=== PATIENT | female | born 1950 | race Asian ===

== ENCOUNTER 2021-04-27 10:05 | Outpatient (CLI) | payer MEDICARE, SELFPAY ==
--- NOTE | 2021-04-27 10:17 | MM_ITS ---
WS: [id number] Bilateral screening digital mammogram, 04/27/2021 Clinical Data: SCREENING Comparison: None. Findings: The breast parenchymal pattern shows heterogeneous density. No spiculated masses or clustered calcif ications are seen. There are no secondary signs of carcinoma. MM/[id number] Impression: 1. Negative bilateral mammogram with no prior exam for review.. 2. Recommend annual screening mammograms. BIRADS: 1-Negative FOLLOW UP: 1 Year Follow-up The CAD tool or die drawing checker was used.
== END 2021-04-27 10:06 | disposition home or self-care (01) ==
LOC: RADSHAW 10:14
PROVIDERS: Family Provider Family Medicine; PCP Family Medicine; Visit Provider Family Medicine
DX: Z12.31 Encounter for screening mammogram for malignant neoplasm of breast (principal)
CPT/HCPCS: 77067

== ENCOUNTER 2022-11-13 11:10 | Outpatient (CLI) | payer MEDICARE, OTHER, SELFPAY | END 2022-11-13 11:11 | disposition home or self-care (01) | LOC: RT 11:10 | PROVIDERS: PCP Family Medicine; Visit Provider Family Medicine | DX: R07.89 Other chest pain (principal) | CPT/HCPCS: 94010; 94726; 94729 ==

== ENCOUNTER 2023-05-27 10:09 | Emergency (ER) | payer MEDICARE, OTHER, SELFPAY ==
[2023-05-27 10:31] VITALS: BP 175/89; PULSE 63; RESP 15; TEMP 36.5; O2SAT 98; BMI 21.2
--- NOTE | 2023-05-27 12:19 | ED_ITS ---
HPI - COVID General: Chief Complaint: COVID symptoms Stated Complaint: covid+, weakness Time Seen by Provider: 05/27/23 12:17 History of Present Illness: 72-year-old female presents to the emergency department at the backing of her . She states that she tested positive for COVID on May 22. was worried about her this morning because she took a nap around 8 or 9 in the morning. Patient explains that she got up at 3 AM to do all of her prayers. After several hours of doing her prayers, she wanted to take a nap. She says she also is jet laggged from travel. She does not think this is something she needs to be here for but her insisted she come get checked out. She reports she has no symptoms other than feeling fatigued. She does have high blood pressure so her doctor started her on Paxlovid on the third. She denies nausea, vomiting, diarrhea, shortness of breath, headaches, dizziness, inability to drink or hydrate, rashes, joint swelling or pain, confusion, trouble walking, or any other symptoms. She does note she has chronic hypertension and takes blood pressure for this. She also says sometimes she has postnasal drip which is also preceding her COVID symptoms. COVID Results: No Data to Display Review of Systems Narrative: Pertinent Positives: Fatigue Postnasal drip with occasional cough Chronic high blood pressure Pertinent Negatives: See HPI. Denies other symptoms. 12 Point ROS performed and otherwise negative unless stated here or HPI. Physical Exam Const: COMMON NORMALS: no limitations, alert and well nourished EXAM LIMITATIONS: no altered mental status HENMT: COMMON NORMALS: normocephalic, atraumatic and external ears normal HEAD & SCALP: normocephalic and atraumatic EXTERNAL EAR: Yes external ears normal MOUTH: no muffled voice Eye: COMMON NORMALS: EOMs intact bilaterally, conjunctivae normal and no scleral icterus CONJUNCTIVA: Yes conjunctivae normal Neck/C-Spine: COMMON NORMALS: no JVD GENERAL: Yes normal visual inspection and Yes trachea midline Resp: COMMON NORMALS: normal respiratory effort, No use of accessory muscles and clear to auscultation bilaterally AUSCULTATION: clear to auscultation bilaterally Cardio: COMMON NORMALS: no JVD, regular rate and regular rhythm RATE: regular rate RHYTHM: regular rhythm GI: COMMON NORMALS: Soft to palpation and non-tender PALPATION: Yes Soft to palpation and No Guarding due to palpation present (GI) Extremity: COMMON NORMALS: normal to inspection Neuro: COMMON NORMALS: moves all extremities, no focal motor deficits and no sensory deficits noted SENSORIUM/ORIENTATION: Yes alert SPEECH: speech normal Psych: COMMON NORMALS: mental status grossly normal, Normal thought process present, cooperative, normal affect and speech normal SPEECH: Yes normal speech THOUGHT PROCESS: Normal thought process present Skin: COMMON NORMALS: no rashes or lesions noted, turgor normal and no jau ndice GENERAL SKIN EXAM: no rashes or lesions noted and turgor normal Course Vital Signs: Vital signs: Vital Signs Temperature 97.7 F 05/27/23 10:31 Pulse Rate 63 05/27/23 10:31 Respiratory Rate 15 05/27/23 10:31 Blood Pressure 175/89 05/27/23 10:31 Pulse Oximetry 100 05/27/23 12:21 Oxygen Delivery Me thod Room Air 05/27/23 12:21 MDM - COVID Medical Decision Making This is a well-appearing 72-year-old female who has tested positive for COVID. She really is asymptomatic and is frustrated to be here. However, her wanted her checked out because she took a nap this morning. She is alert, ambulatory, and has a normal exam and normal vital signs other than hypertension. I do not find any reason to do any further work-up and was satisfied with her examination. Discharged with follow-up PCP as needed. 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
[2023-05-27 12:21] VITALS: O2SAT 100
[2023-05-27 13:01] VITALS: BP 175/89; PULSE 63; O2SAT 100
== END 2023-05-27 13:03 | disposition home or self-care (01) ==
PROVIDERS: Emergency Provider Emergency Medicine; PCP Family Medicine
DX: U07.1 COVID-19 (principal); I10 Essential (primary) hypertension
CPT/HCPCS: 99281

== ENCOUNTER 2024-07-15 07:48 | Outpatient (CLI) | payer MEDICARE, OTHER, SELFPAY | END 2024-07-15 07:49 | disposition home or self-care (01) | LOC: RT 07:49 | PROVIDERS: PCP Electrodiagnostic Medicine; Visit Provider Electrodiagnostic Medicine | DX: R05.3 Chronic cough (principal); R94.2 Abnormal results of pulmonary function studies | CPT/HCPCS: 94010; 94726; 94729 ==

== ENCOUNTER 2024-07-29 15:48 | Outpatient (CLI) | payer MEDICARE, OTHER, SELFPAY | END 2024-07-29 15:49 | disposition home or self-care (01) | LOC: SLEEP 15:50 | PROVIDERS: PCP Family Medicine; Visit Provider Electrodiagnostic Medicine | DX: G47.33 Obstructive sleep apnea (adult) (pediatric) (principal) | CPT/HCPCS: G0399 ==

== ENCOUNTER 2025-01-29 07:22 | Inpatient (IN) | payer MEDICARE, OTHER, SELFPAY ==
[2025-01-29] VITALS (10 sets, daily range): BP systolic 120–166; BP diastolic 58–95; PULSE 56–97; RESP 14–18; TEMP 36.4–36.6; O2SAT 96–99; BMI 21.2
--- NOTE | 2025-01-29 07:27 | ECG_ITS ---
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 Measurements Intervals [place] Rate: 58 P: 61 [place]: 210 QRS: 18 QRSD: 93 T: 37 QT: 405 QTc: 400 Interpretive Statements SINUS BRADYCARDIA WITH FIRST DEGREE AV BLOCK No previous ECG available for comparison Electronically Signed On 01-30-2025 13:09:22 CDT by Tacho Alonso M.D. [id number]
--- NOTE | 2025-01-29 07:35 | XR_ITS ---
WS: [id number] Exam: XR chest 1V portable [id number] Date/Time of Exam: 01/29/2025 7:50 AM Reason For Exam: Weakness Comparison 05/13/2024. Lungs are clear and fully inflated. Normal cardiomediastinal silhouette. No pleural effusions. Bony structures are intact. XR/XR chest 1V portable [id number] IMPRESSION: 1. No acute cardiopulmonary finding.
--- NOTE | 2025-01-29 07:35 | CT_ITS ---
WS: [id number] CT HEAD TECHNIQUE: Noncontrast CT of the head obtained from the skullbase to the vertex. CLINICAL INFORMATION: dizzy COMPARISON: None. DLP: 1011.[address] scans at [facility] use at least one of these dose optimization techniques: automated exposure control; mA and/or kV adjustment per patient size (includes targeted exams where dose is matched to clinical indication); or iterative reconstruction. FINDINGS: No evidence of intracranial hemorrhage or mass effect. Ventricular system and basal cisterns are patent. Mild small vessel changes with mild parenchymal volume loss. No extra-axial fluid collections. No evidence of mass or mass effect. Vascular calcification. Chronic opacification RIGHT mastoid air cells. Opacification RIGHT middle ear. LEFT mastoid air cells are well aerated. Paranasal sinuses are well aerated. CT/CT head wo con* [id number] IMPRESSION: 1. No evidence of intracranial hemorrhage or mass effect. 2. Chronic appearing opacification of the RIGHT mastoid air cells. 3. Soft tissue thickening of the RIGHT middle ear and epitympanum. This is lik alfred infectious or inflammatory but recommend interval follow-up to resolution t o exclude small cholesteatoma. 4. No acute intracranial findings.
--- NOTE | 2025-01-29 07:42 | ED_ITS ---
HPI - Dizziness 2 General: Chief Complaint: Dizziness Stated Complaint: dizzy Time Seen by Provider: 01/29/25 07:29 History of Present Illness: HPI Narrative: 74-year-old female who presents to the e mergency room with dizziness. She has extreme difficulty disc being the dizziness. He says it is not really being lightheaded. She says a little bit of off balance. Does not really describe it is standing either. Perhaps some mild nausea. She becomes frustrated with trying to explain what it feels like. It has been going on for over 2 days now. She says she feels like things are moving and movement worsens the symptoms. She has had no nausea she says. No vomiting or diarrhea. No history of stroke. No headache. No altered mental status. No focal motor deficits. She does have a history of hypertension. No reports of fever cough. Related Data Home Medications ?Medication ?Instructions ?Recorded ?Confirmed aspirin 81 mg tablet,delayed 81 mg PO DAILY 01/29/25 0 01/29/25 release (Sapphire Low Dose Aspirin) cholecalciferol (vitamin D3) 125 125 mcg PO DAILY 01/1901/29/25 mcg (5,000 unit) tablet (Vitamin D3) losartan 100 1 tab PO DAILY 01/29/2501/19 mg-hydrochlorothiazide 25 mg tablet omega 1-lgx-yum-fish oil 900 1 cap PO DAILY 01/29/25 0 01/29/25 mg-1,400 mg capsule,delayed release Allergies Allergy/AdvReac Type Severity Reaction Status Date / Time No Known Allergies Allergy Verified 01/29/25 07:29 Review of Systems 2 Narrative: Constitutional symptoms: Negative except as documented in HPI. Skin symptoms: Negative except as documented in HPI. Eye symptoms: Negative except as documented in HPI. ENMT symptoms: Negative except as documented in HPI. Respiratory symptoms: Negative except as documented in HPI. Cardiovascular symptoms: Negative except as documented in HPI. Gastrointestinal symptoms: Negative except as documented in HPI. Genitourinary symptoms: Negative except as documented in HPI. Musculoskeletal symptoms: Negative except as documented in HPI. Neurologic symptoms: Negative except as documented in HPI. Psychiatric symptoms: Negative except as documented in HPI. Endocrine symptoms: Negative except as documented in HPI. Physical Exam 2 Narrative: EXAM NARRATIVE: General: Alert, no acute distress. Skin: Warm, dry. Head: Normocephalic, atraumatic. Neck: Supple, trachea midline. Eye: Extraocular movements are intact. Ears, nose, mouth and throat: mucosa moist. Cardiovascular: Regular, Normal peripheral perfusion. Respiratory: Lungs are clear to auscultation, respirations are non-labored, breath sounds are equal, Symmetrical chest wall expansion. Gastrointestinal: Soft, Nontender, Non distended Musculoskeletal: Normal ROM, no deformity. Neurological: Alert and oriented, No focal neurological deficit observed. Psychiatric: Cooperative, appropriate mood & affect. Course 2 Vital Signs: Vital signs: Vital Signs Temperature 97.5 F L 01/29/25 07:26 Pulse Rate 56 L 01/29/25 09:56 Respiratory Rate 17 01/29/25 08:47 Blood Pressure 122/58 01/29/25 09:56 Pulse Oximetry 97 01/29/25 09:56 Oxygen Delivery Me thod Room Air 01/29/25 07:26 MDM - Dizziness Medical Decision Making Medical decision making: Differential diagnosis including but not limited to and based on the above HPI, review of systems and physical exam: for patient with complaint of dizziness: stroke, hypotension, hypertension, infection, vertigo, orthostasis Orders placed to evaluate differential diagnosis based on the above differential, HPI and physical exam Patient initially was very vague about her symptoms. Was difficult to say if this was a lightheadedness or more of a vertigo type issue. However later when we got her up she seemed to have fairly significant gait abnormality. Code stroke was not called secondary to the fact that her symptoms have been present for over 48 hours and her stroke scale was 0. NIH Stroke Scale/Score (NIHSS) from [email or web address] on 01/29/2025 All calculations should be rechecked by clinician prior to use RESULT SUMMARY: 0 points NIH Stroke Scale INPUTS: 1A: Level of consciousness ?> 0 = Alert; keenly responsive 1B: Ask month and age ?> 0 = Both questions right 1C: 'Blink eyes' & 'squeeze hands' ?> 0 = Performs both tasks 2: Horizontal extraocular movements ?> 0 = Normal 3: Visual bo ?> 0 = No visual loss 4: Facial palsy ?> 0 = Normal symmetry 5A: Left arm motor drift ?> 0 = No drift for 10 seconds 5B: Right arm motor drift ?> 0 = No drift for 10 seconds 6A: Left leg motor drift ?> 0 = No drift for 5 seconds 6B: Right leg motor drift ?> 0 = No drift for 5 seconds 7: Limb Ataxia ?> 0 = No ataxia 8: Sensation ?> 0 = Normal; no sensory loss 9: Language/aphasia ?> 0 = Normal; no aphasia 10: Dysarthria ?> 0 = Normal 11: Extinction/inattention ?> 0 = No abnormality EKG: Time 727. Rate 58. Sinus bradycardia. No ST-T changes, no ectopy, first degree AV Block, EP Interpretation. This was reviewed and interpreted by myself the ER physician at 7:30 AM. Chest x-ray: No acute process. No infiltrate. No pneumothorax. This was reviewed and interpreted by myself the emergency room physician. I also reviewed the radiology report. CT head: No acute intracranial process. no intracranial hemorrhage, no evidence of infarct. no evidence of acute fracture.This was reviewed and interpreted by myself the ER physician. Lab Review: Laboratory results were reviewed and interpreted by myself the emergency room physician. No leukocytosis. No anemia. No renal failure. Patient does have a fairly significant urinary tract infection with 11-20 whites and 4+ bacteria. I reviewed the patient's medical record. Reexamination: Patient continues to complain of fairly severe dizziness. Again she cannot describe it well but she has significant instability of her gait. With her continued symptoms and concern for possible stroke at this point we are going to admit for further workup. I ordered MRI that is not complete at the time of admission. No increased work of breathing. No altered mental status. Still no focal motor deficits. Consultation: I spoke with Dr. Christensen who is on-call for the hospitalist service who agrees to admission Assessment and plan: Gait instability Dizziness Accelerated hypertension ?Symptoms were not relieved with meclizine nor with Ativan. However blood pressure has improved some with the Ativan. -I discussed the patient with the hospitalist on-call who is admitting the patient. - Discussed findings and plan with patient. Answered any questions. - All laboratory values were reviewed and interpreted personally by myself, the ER physician - All imaging was reviewed and interpreted personally by myself, the ER physician. - Evaluation and treatment of this problem were appropriate in the emergency setting Lab Data 01/29/25 07:32 01/29/25 07:32 Radiology Impressions Chest X-Ray 01/29/25 07:35 IMPRESSION: 1. No acute cardiopulmonary finding. Head CT 01/29/25 07:35 IMPRESSION: 1. No evidence of intracranial hemorrhage or mass effect. 2. Chronic appearing opacification of the RIGHT mastoid air cells. 3. Soft tissue thickening of the RIGHT middle ear and epitympanum. This is likely infectious or inflammatory but recommend interval follow-up to resolution to exclude small cholesteatoma. 4. No acute intracranial findings. Laboratory Results WBC 7.53 10^3/uL (3.29-11.43) 01/29/25 07:32 RBC 4.29 10^6/uL (3.85-5.65) 01/29/25 07:32 Hgb 13.00 g/dL (11.27-16.99) 01/29/25 07:32 Hct 38.5 % (36-47) 01/29/25 07:32 MCV 89.7 fl (85-98) 01/29/25 07:32 MCH 30.3 pg (27-33) 01/29/25 07:32 MCHC 33.8 g/dL (30-55) 01/29/25 07:32 RDW 12.3 % (12.1-15.1) 01/29/25 07:32 Plt Count 244 10^3/cmm (157-399) 01/29/25 07:32 MPV 7.9 fL (7.4-10.4) 01/29/25 07:32 Neut % (Auto) 76.1 % 01/29/25 07:32 Lymph % (Auto) 15.8 % 01/29/25 07:32 [place] % (Auto) 4.4 % 01/29/25 07:32 Eos % (Auto) 2.9 % 01/29/25 07:32 Baso % (Auto) 0.5 % 01/29/25 07:32 Neut # (Auto) 5.73 10^3/uL (1.8-7.7) 01/29/25 07:32 Lymph # (Auto) 1.2 10^3/uL (0.8-4.8) 01/29/25 07:32 [place] # (Auto) 0.3 10^3/uL (0.2-0.9) 01/29/25 07:32 Eos # (Auto) 0.2 10^3/uL (0.0-0.8) 01/29/25 07:32 Baso # (Auto) 0.0 10^3/uL (0.0-0.1) 01/29/25 07:32 Nucleated RBC % (auto) 0 % 01/29/25 07:32 Nucleated RBCs # 0.0 /100WBC 01/29/25 07:32 Sodium 134 mmol/L (136-145) L 01/29/25 07:32 Potassium 3.6 mmol/L (3.5-5.1) 01/29/25 07:32 Chloride 98 mmol/L (98-107) 01/29/25 07:32 Carbon Dioxide 24 mmol/L (22-29) 01/29/25 07:32 Anion Gap 15.6 (5-19) 01/29/25 07:32 BUN 10 mg/dL (8-23) 01/29/25 07:32 Creatinine 0.7 mg/dL (0.5-0.9) 01/29/25 07:32 GFR Calculation Not Reportable 01/29/25 07:32 Glucose 114 mg/dL (65-115) 01/29/25 07:32 POC Glucose 111 mg/dL (70-110) H 01/29/25 07:40 Calculated Osmolality 278 mOsm/kg (285-295) L 01/29/25 07:32 Calcium 9.4 mg/dL (8.5-10.5) 01/29/25 07:32 Total Bilirubin 1.2 mg/dL (0.15-1.2) 01/29/25 07:32 AST 20 U/L (0-32) 01/29/25 07:32 ALT 7 U/L (0-33) 01/29/25 07:32 Alkaline Phosphatase 89 U/L (35-105) 01/29/25 07:32 Troponin T Baseline < 6 ng/L (0-10) 01/29/25 07:32 Troponin T 120 Minute 6.56 ng/L (0-10) 01/29/25 10:02 Delta Troponin T 0.44694 ABS# (0-10) 01/29/25 10:02 Total Protein 7.4 g/dL (6.6-8.7) 01/29/25 07:32 Albumin 4.4 g/dL (3.5-5.2) 01/29/25 07:32 Globulin 3.0 g/dL (1.3-4.6) 01/29/25 07:32 Urine Color Yellow (Yellow) 01/29/25 07:45 Urine Appearance Clear (CLEAR) 01/29/25 07:45 Urine pH 8 (5-7) A 01/29/25 07:45 Ur Specific [place] 1.010 (1.005-1.030) 01/29/25 07:45 Urine Protein Neg (Negative) 01/29/25 07:45 Urine Glucose (UA) Norm (Normal) 01/29/25 07:45 Urine Ketones Negative (Negative) 01/29/25 07:45 Urine Blood Neg (Negative) 01/29/25 07:45 Urine Nitrate Negative (Negative) 01/29/25 07:45 Urine Bilirubin Neg (Negative) 01/29/25 07:45 Urine Urobilinogen Neg mg/dL (Negative) 01/29/25 07:45 Ur Leukocyte Esterase Trace (Negative) H 01/29/25 07:45 Urine RBC 0-2 /hpf (0-2) 01/29/25 07:45 Urine WBC 11-20 /hpf (0-5) H 01/29/25 07:45 Ur Squamous Epith Cells 0-5 /hpf (0-5) 01/29/25 07:45 Amorphous Sediment Not Reportable 01/29/25 07:45 Urine Bacteria 4+ /hpf (NONE) H 01/29/25 07:45 Hyaline Casts 0-4 /lpf H 01/29/25 07:45 All radiology interpretation(s) finalized by discharge Discharge Plan Discharge Patient Disposition: Admitted As Inpatient Clinical Impression: Gait instability, Dizziness, Accelerated hypertension Condition: Stable 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
--- NOTE | 2025-01-29 07:42 | PC.NURSE ---
glucose via FS: 111 @[id number]
[2025-01-29 07:45] LABS: Glucose Point of Care 111 mg/dL (70-110)
[2025-01-29 07:46] LABS: Basophils % 0.5 %; Eosinophils # 0.2 10^3/uL (0.0-0.8); Eosinophils % 2.9 %; Hematocrit 38.5 % (36-47); Lymphocytes # 1.2 10^3/uL (0.8-4.8); Lymphocytes % 15.8 %; Mean Corpuscular HGB Conc 33.8 g/dL (30-55); Mean Corpuscular Hemoglobin 30.3 pg (27-33); Mean Corpuscular Volume 89.7 fl (85-98); Mean Platelet Volume 7.9 fL (7.4-10.4); Monocytes # 0.3 10^3/uL (0.2-0.9); Monocytes % 4.4 %; Neutrophils # 5.73 10^3/uL (1.8-7.7); Neutrophils % 76.1 %; Nucleated Red Blood Cells % 0 %; Platelet Count 244 10^3/cmm (157-399); Red Blood Count 4.29 10^6/uL (3.85-5.65); Red Cell Distribution Width 12.3 % (12.1-15.1); White Blood Count 7.53 10^3/uL (3.29-11.43)
[2025-01-29 07:52] LABS: Bacteria Urine 4+ /hpf; Hyaline Casts Urine 0-4 /lpf; RBC Urine 0-2 /hpf (0-2); Squamous Epithelial Cell Urine 0-5 /hpf (0-5)
[2025-01-29 07:55] LABS: Bilirubin Urine Neg (Negative); Blood Urine Neg (Negative); Glucose Urine UA Norm (Normal); Ketones Urine Negative (Negative); Leukocyte Esterase Urine Trace (Negative); Nitrate Urine Negative (Negative); Protein Urine Neg (Negative); Urine Appearance Clear (CLEAR); Urine Color Yellow (Yellow); Urobilinogen Urine Neg (Negative); pH Urine 8 (5-7)
[2025-01-29 07:56] LABS: Add Urine Culture? Yes
[2025-01-29] MEDS: meclizine 25 mg tablet 50 MG PO (07:56)
[2025-01-29 08:07] LABS: Troponin(5th) Baseline < 6 ng/L (0-10)
[2025-01-29 08:10] LABS: Alanine Aminotransferase 7 U/L (0-33); Albumin Level 4.4 g/dL (3.5-5.2); Alkaline Phosphatase 89 U/L (35-105); Anion Gap 15.6 (5-19); Aspartate Amino Transferase 20 U/L (0-32); Blood Urea Nitrogen 10 mg/dL (8-23); Calcium 9.4 mg/dL (8.5-10.5); Carbon Dioxide 24 mmol/L (22-29); Chloride 98 mmol/L (98-107); Creatinine Clr Calc Pharmacy 44.9811; Glucose 114 mg/dL (65-115); Osmolality Calculated 278 mOsm/kg (285-295); Potassium 3.6 mmol/L (3.5-5.1); Sodium 134 mmol/L (136-145); Total Bilirubin 1.2 mg/dL (0.15-1.2); Total Protein 7.4 g/dL (6.6-8.7)
--- NOTE | 2025-01-29 08:43 | PC.NURSE ---
this nurse completed ambulation trial approx 45min post Meclizine admin; pt presented with side stepping, off balance. pt denies improvement. pt states supine helps relieve dizziness. Dr. Courtney notified
[2025-01-29] MEDS: LORazepam 2 mg/mL INJ 1 mL 1 MG IVP (08:55)
[2025-01-29] MEDS: dexamethasone 10 mg/mL INJ IVP (08:55)
--- NOTE | 2025-01-29 09:35 | ECG_ITS ---
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 Measurements Intervals [place] Rate: 59 P: 59 [place]: 187 QRS: 20 QRSD: 90 T: 45 QT: 401 QTc: 399 Interpretive Statements SINUS BRADYCARDIA Compared to ECG 01/29/2025 07:27:36 First degree AV block no longer present Electronically Signed On 01-30-2025 13:21:36 CDT by Tacho Alonso M.D. [email or web address]
[2025-01-29 10:33] LABS: Troponin 5 2HR 6.56 ng/L (0-10); Troponin 5 2HR Delta 0.56001 ABS# (0-10)
--- NOTE | 2025-01-29 10:59 | MR_ITS ---
WS: [id number] MRI BRAIN WITHOUT CONTRAST HISTORY: gait abnormality COMPARISON: CT head 01/29/2025 TECHNIQUE: Diffusion imaging, multiplanar T1, T2 and FLAIR imaging obtained. No evidence for acute infarct or hemorrhage. [place]-white matter differentiation is normal. Mild atrophy in the cerebrum and cerebellum. Mild small vessel disease. Ventricles and extra-axial spaces are normal. No inferior displacement of cerebellar tonsils. The sella turcica and pituitary gland are unremarkable. Dural venous sinuses and [place] demonstrate no abnormality on this unenhanced studies. Paranasal sinuses: Clear. Mastoid air cells: Minimal fluid in the RIGHT mastoid air cells towards the petrous ridge. Calvarium and scalp: Intact. MR/MR head wo con* [id number] IMPRESSION: 1. Normal diffusion imaging. No acute infarct. 2. Mild atrophy and small vessel disease. No large prior infarcts. 3. Mild RIGHT mastoid effusion.
--- NOTE | 2025-01-29 10:59 | PC.NURSE ---
attempted second ambulation trail, pt appears more unsteady, states dizziness remains the same. pt laying supine d/t relieving dizziness
--- NOTE | 2025-01-29 12:19 | PC.NURSE ---
attempted to call report to [facility], per Ericka unable to take report d/t not being able to give nurse assignment yet. states will call back in 10-20min.
[2025-01-29 15:13] LABS: Troponin 5 6HR Delta 0.00001 ng/L (0-12)
--- NOTE | 2025-01-29 17:12 | P.HP_ITS ---
Providers/Chief Complaint 2 Admitting Physician: Hector Christensen Primary Care Provider: Yvonne Olea MD Chief Complaint: dizzy History of Present Illness This is a female patient with a history of high blood pressure presenting with a two?day history of dizziness and instability that is most prominent on standing up or turning her head. The patient denies nausea, vomiting, fever, chills, diarrhea, chest pain, or shortness of breath. She reports intermittent ringing in her ears but no ear pain, discharge, or significant hearing loss. Recent imaging including a CT scan and an MRI were unremarkable for stroke. A possible benign paroxysmal positional vertigo (BPPV) is being considered. Additionally, a potential urinary tract infection was briefly mentioned but the patient denies any dysuria or hematuria. The patient leads an active lifestyle, working in a large garden, and reports no recent changes in her medications. Review of Systems 2 Const: Denies: fever(s), chills, body aches or malaise ENMT: Denies: throat pain Card: Denies: chest pain, edema, pre-syncope or dyspnea on exertion Resp: Denies: dyspnea, productive cough, change in phlegm color or hemoptysis GI: Denies: abdominal pain, nausea, vomiting, diarrhea, constipation, hematochezia or melena : Denies: flank pain, urinary frequency or hematuria Musc: Denies: back pain, joint swelling or joint redness Skin/Breast: Denies: rash or new lesions Neuro: Reports: difficulty walking and dizziness; Denies: headache(s) or confusion Medications/Allergies Home Medications ?Medication ?Instructions ?Recorded ?Confirmed ?Last Taken ?Type aspirin 81 mg tablet,delayed 81 mg PO DAILY 01/29/25 0 01/29/25 01/29/25 History release (Sapphire Low Dose Aspirin) cholecalciferol (vitamin D3) 125 125 mcg PO DAILY 01/1901/29/25 01/28/25 History mcg (5,000 unit) tablet (Vitamin D3) losartan 100 1 tab PO DAILY 01/29/2501/1901/28/25 History mg-hydrochlorothiazide 25 mg tablet omega 1-tim-xpd-fish oil 900 1 cap PO DAILY 01/29/25 0 01/29/25 01/28/25 History mg-1,400 mg capsule,delayed release Allergies Allergy/AdvReac Type Severity Reaction Status Date / Time No Known Allergies Allergy Verified 01/29/25 07:29 PFSH Acute 2 PFSH: Medical History (Updated 01/29/25 @ 20:14 by Hector Christensen MD) HTN (hypertension) Vitals/I&O/Wt Last Vital Signs Temp 97.8 F 01/29/25 16:04 Pulse 64 01/29/25 16:04 Resp 18 01/29/25 16:04 BP 152/77 01/29/25 16:04 Pulse Ox 98 01/29/25 16:04 O2 Del Method Room Air 01/29/25 16:04 Weight last 48 hrs Weight 46.266 kg Weight 47.627 kg Physical Exam 2 Narrative: at bedside Const: COMMON NORMALS: patient oriented x3 and alert GENERAL APPEARANCE: c ooperative ORIENTATION/CONSCIOUSNESS: Yes awake HENMT: COMMON NORMALS: oropharynx normal Neck/C-Spine: COMMON NORMALS: no JVD Resp: COMMON NORMALS: normal respiratory effort and clear to auscultation bilaterally AUSCULTATION: clear to auscultation bilaterally Cardio: COMMON NORMALS: no JVD, regular rhythm, S1 normal heart sound present, S2 normal heart sound present and No murmurs present (Cardio) RHYTHM: regular rhythm HEART SOUNDS: S1 normal heart sound present and S2 normal heart sound present GI: COMMON NORMALS: Normal to inspection, nondistended, normoactive bowel sounds present, Soft to palpation and non-tender PALPATION: Yes Soft to palpation Extremity: COMMON NORMALS: no joint enlargement and no pedal edema Neuro: COMMON NORMALS: patient oriented x3 and moves all extremities S ENSORIUM/ORIENTATION: Yes alert OTHER: NIHSS 0 She is awake and alert, following directions, no difficulty tracking resultantly, no nystagmus, visual bo full to conversation. FNF normal. Cyhc-ac-nxni normal. No slurred speech, no aphasia, sensation symmetrical, no upper or lower extremity drift. No nystagmus on either side of the gaze. No skew deviation. Proprioception intact in bilateral toes. [place]-Hallpike negative. On ambulation holding onto the wall with mild swaying [id number]. Skin: COMMON NORMALS: no rashes or lesions noted GENERAL SKIN EXAM: no rashes or lesions noted Data 01/29/25 07:32 01/29/25 07:32 A&P Assessment and plan (1) Gait instability: Patient presents with episodic dizziness and imbalance triggered by positional changes. Imaging has ruled out a stroke and BPPV is being considered as a potential cause, however, [place]-Hallpike performed, negative. Less likely BPPV, but will obtain PT assessment to see if can repeat. Orthostatics obtained, reviewed, not orthostatic. Discussed with her and her suspicion of vestibular neuronitis versus labyrinthitis. She does reports having had some hearing loss in the right ear. In the past has had intermittent tinnitus. Discussed differential with possible M?ni?re's disease. Will benefit from follow-up with ENT after discharge. Discussed consideration of treatment with corticosteroid for possible vestibular neuronitis. Discussed risk and potential benefit of corticosteroid, including among others hypertension, hyperglycemia, gastritis. MRI without CVA or obvious demyelination, although noncontrast study. Discussed may benefit from follow-up with neurology after discharge. Treat UTI. Dizziness may be secondary to her medications, both losartan and HCTZ can cause this symptom. Will hold medication, reassess, consider discontinuation at discharge. Reviewed vitals, CBC, CMP, troponin, chest x-ray, head CT, head MRI, ER provider note, discussed with ER provider. PT assessment requested. (2) Dizziness: As above. Plan Appears to have had prior otitis externa in bilateral ears, ringing of thick scar tissue noted in front of the tympanic membrane with central opening through which the membrane can be barely visualized. This is her better ear. Right ear small amount of prior scarring. She does state that she has been using Q-tips, advised her to avoid Q-tips. Follow-up with ENT for assessment particular left ear scar tissue and EAM narrowing, as well as right ear hearing loss. HTN: Monitor blood pressures. Currently at goal. PDMP PDMP Reviewed: Not Reviewed Attestations 2 Medical Necessity Statement*: Place in observation for assessment management of gait instability. and High MDM includes amount and/or complexity of data reviewed/ordered [ previous or external records, resulted lab(s)/test(s), ordered lab(s)/test(s) and other healthcare professional discussion] and described risk of complication, morbidity or mortality of management as documented Diagnoses Gait instability R26.81 Dizziness R42
[2025-01-29] MEDS: cefTRIAXone 1,000 mg SDV 1000 MG IVP (17:44)
[2025-01-29] MEDS: predniSONE 20 mg Tablet 50 MG PO (18:08)
[2025-01-30] VITALS: BP 114/67; PULSE 72; RESP 16; TEMP 36.6; O2SAT 95
[2025-01-30 03:59] LABS: Basophils % 0.1 %; Hematocrit 38.7 % (36-47); Lymphocytes # 0.8 10^3/uL (0.8-4.8); Mean Corpuscular HGB Conc 33.3 g/dL (30-55); Mean Corpuscular Hemoglobin 29.9 pg (27-33); Mean Corpuscular Volume 89.6 fl (85-98); Mean Platelet Volume 8.2 fL (7.4-10.4); Monocytes # 0.1 10^3/uL (0.2-0.9); Monocytes % 0.8 %; Neutrophils # 12.04 10^3/uL (1.8-7.7); Neutrophils % 92.7 %; Nucleated Red Blood Cells % 0 %; Platelet Count 253 10^3/cmm (157-399); Red Blood Count 4.32 10^6/uL (3.85-5.65); Red Cell Distribution Width 12.1 % (12.1-15.1); White Blood Count 12.98 10^3/uL (3.29-11.43)
[2025-01-30 04:00] VITALS: BP 131/74; PULSE 64; RESP 15; TEMP 36.4; O2SAT 96
[2025-01-30 04:12] LABS: Blood Urea Nitrogen 17 mg/dL (8-23); Calcium 9.4 mg/dL (8.5-10.5); Carbon Dioxide 20 mmol/L (22-29); Chloride 99 mmol/L (98-107); Creatinine Clr Calc Pharmacy 43.6957; Glucose 164 mg/dL (65-115); Osmolality Calculated 277 mOsm/kg (285-295); Sodium 131 mmol/L (136-145)
[2025-01-30 04:15] LABS: Anion Gap 15.6 (5-19); Potassium 3.6 mmol/L (3.5-5.1)
[2025-01-30 07:26] VITALS: BP 125/71; PULSE 66; RESP 16; TEMP 36.4; O2SAT 95
--- NOTE | 2025-01-30 09:32 | P.DS_ITS ---
Discharge Providers Date of Admission: 01/29/25 12:17 Date of Discharge: January 30, 2025 Attending Provider at Admission: Hector Christensen Attending Provider at Discharge: Brennen Castellanos MD Primary Care Provider: Yvonne Olea MD Diagnoses at Discharge Discharge Diagnosis (1) Gait instability: Status: Acute (2) Dizziness: Status: Acute Reason for Visit Reason for Visit: dizzy Hospital Course Hospital Course Jaycee Zamudio is a 74-year-old female who presented with severe vertigo. Posterior stroke was considered but ruled out with MRI. BPPV considered but [place]-Hallpike negative. Orthostatic vitals unremarkable. Presentation highly suspicious for vestibular neuritis. Patient treated with steroids and meclizine. She follows with ENT locally for which recommend follow-up within 7 days. Workup also revealed acute complicated urinary tract infection treated with ceftriaxone and transition to cefdinir. Her symptomatology improved. Patient discharged home in stable condition. She will follow-up with her primary within 1 week. Physical Exam Narrative: General: Patient is awake and alert. Head: Normocephalic. Atraumatic. EOM intact. Neck: No JVD. Cardiovascular: RRR. No gallops. No murmurs. No peripheral edema. Lungs: Clear to auscultation, no use of accessory muscles, no crackles or wheezes. Skin: No jaundice. No rashes. Abdomen: Normal bowel sounds, abdomen soft and nontender. Genito Urinary: Genital exam not performed since complaints not related. Rectal: Rectal exam not performed since no symptoms indicated blood loss. Extremities: No cyanosis or clubbing. Musculoskeletal: No swollen or erythematous joints. Neurological: Moves all 4 extremities. No myoclonus. Discharge Data Studies Completed and Pending Completed Studies During Hospitalization Category Date Time Status CT head wo con* [id number] Stat Cat Scan 01/29/25 07:35 Completed XR chest 1V portable [id number] Stat Exams 01/29/25 07:35 Completed MR head wo con* [id number] Stat MRI 01/29/25 10:59 Completed Pending at discharge Category Date Time Status Urine Culture Stat Lab 01/29/25 07:45 Results Radiology Impressions Chest X-Ray 01/29/25 07:35 IMPRESSION: 1. No acute cardiopulmonary finding. Head CT 01/29/25 07:35 IMPRESSION: 1. No evidence of intracranial hemorrhage or mass effect. 2. Chronic appearing opacification of the RIGHT mastoid air cells. 3. Soft tissue thickening of the RIGHT middle ear and epitympanum. This is likely infectious or inflammatory but recommend interval follow-up to resolution to exclude small cholesteatoma. 4. No acute intracranial findings. Head MRI 01/29/25 10:59 IMPRESSION: 1. Normal diffusion imaging. No acute infarct. 2. Mild atrophy and small vessel disease. No large prior infarcts. 3. Mild RIGHT mastoid effusion. Laboratory Results WBC 12.98 10^3/uL (3.29-11.43) H 01/30/25 03:40 RBC 4.32 10^6/uL (3.85-5.65) 01/30/25 03:40 Hgb 12.90 g/dL (11.27-16.99) 01/30/25 03:40 Hct 38.7 % (36-47) 01/30/25 03:40 MCV 89.6 fl (85-98) 01/30/25 03:40 MCH 29.9 pg (27-33) 01/30/25 03:40 MCHC 33.3 g/dL (30-55) 01/30/25 03:40 RDW 12.1 % (12.1-15.1) 01/30/25 03:40 Plt Count 253 10^3/cmm (157-399) 01/30/25 03:40 MPV 8.2 fL (7.4-10.4) 01/30/25 03:40 Neut % (Auto) 92.7 % 01/30/25 03:40 Lymph % (Auto) 6.0 % 01/30/25 03:40 [place] % (Auto) 0.8 % 01/30/25 03:40 Eos % (Auto) 0.0 % 01/30/25 03:40 Baso % (Auto) 0.1 % 01/30/25 03:40 Neut # (Auto) 12.04 10^3/uL (1.8-7.7) H 01/30/25 03:40 Lymph # (Auto) 0.8 10^3/uL (0.8-4.8) 01/30/25 03:40 [place] # (Auto) 0.1 10^3/uL (0.2-0.9) L 01/30/25 03:40 Eos # (Auto) 0.0 10^3/uL (0.0-0.8) 01/30/25 03:40 Baso # (Auto) 0.0 10^3/uL (0.0-0.1) 01/30/25 03:40 Nucleated RBC % (auto) 0 % 01/30/25 03:40 Nucleated RBCs # 0.0 /100WBC 01/30/25 03:40 Sodium 131 mmol/L (136-145) L 01/30/25 03:40 Potassium 3.6 mmol/L (3.5-5.1) 01/30/25 03:40 Chloride 99 mmol/L (98-107) 01/30/25 03:40 Carbon Dioxide 20 mmol/L (22-29) L 01/30/25 03:40 Anion Gap 15.6 (5-19) 01/30/25 03:40 BUN 17 mg/dL (8-23) 01/30/25 03:40 Creatinine 0.8 mg/dL (0.5-0.9) 01/30/25 03:40 GFR Calculation Not Reportable 01/30/25 03:40 Glucose 164 mg/dL (65-115) H 01/30/25 03:40 POC Glucose 111 mg/dL (70-110) H 01/29/25 07:40 Calculated Osmolality 277 mOsm/kg (285-295) L 01/30/25 03:40 Calcium 9.4 mg/dL (8.5-10.5) 01/30/25 03:40 Total Bilirubin 1.2 mg/dL (0.15-1.2) 01/29/25 07:32 AST 20 U/L (0-32) 01/29/25 07:32 ALT 7 U/L (0-33) 01/29/25 07:32 Alkaline Phosphatase 89 U/L (35-105) 01/29/25 07:32 Troponin T Baseline < 6 ng/L (0-10) 01/29/25 07:32 Troponin T 120 Minute 6.56 ng/L (0-10) 01/29/25 10:02 Delta Troponin T 0.59441 ABS# (0-10) 01/29/25 10:02 Troponin T Hi Sens 6Hr 6.00 ng/L (0-10) 01/29/25 13:36 Troponin T Hi Sens 6Hr Delta 0.38084 ng/L (0-12) 01/29/25 13:36 Total Protein 7.4 g/dL (6.6-8.7) 01/29/25 07:32 Albumin 4.4 g/dL (3.5-5.2) 01/29/25 07:32 Globulin 3.0 g/dL (1.3-4.6) 01/29/25 07:32 Urine Color Yellow (Yellow) 01/29/25 07:45 Urine Appearance Clear (CLEAR) 01/29/25 07:45 Urine pH 8 (5-7) A 01/29/25 07:45 Ur Specific [place] 1.010 (1.005-1.030) 01/29/25 07:45 Urine Protein Neg (Negative) 01/29/25 07:45 Urine Glucose (UA) Norm (Normal) 01/29/25 07:45 Urine Ketones Negative (Negative) 01/29/25 07:45 Urine Blood Neg (Negative) 01/29/25 07:45 Urine Nitrate Negative (Negative) 01/29/25 07:45 Urine Bilirubin Neg (Negative) 01/29/25 07:45 Urine Urobilinogen Neg mg/dL (Negative) 01/29/25 07:45 Ur Leukocyte Esterase Trace (Negative) H 01/29/25 07:45 Urine RBC 0-2 /hpf (0-2) 01/29/25 07:45 Urine WBC 11-20 /hpf (0-5) H 01/29/25 07:45 Ur Squamous Epith Cells 0-5 /hpf (0-5) 01/29/25 07:45 Amorphous Sediment Not Reportable 01/29/25 07:45 Urine Bacteria 4+ /hpf (NONE) H 01/29/25 07:45 Hyaline Casts 0-4 /lpf H 01/29/25 07:45 Vitals Last Vital Signs Temp 97.5 F L 01/30/25 07:26 Pulse 66 01/30/25 07:26 Resp 16 01/30/25 07:26 BP 125/71 01/30/25 07:26 Pulse Ox 95 01/30/25 07:26 O2 Del Method Room Air 01/30/25 07:26 Discharge Plan Discharge Patient Disposition: Home Condition: Stable Prescriptions: New prednisone 20 mg Tablet 40 mg PO DAILY 5 Days Qty: 20 0RF meclizine 25 mg Tablet 25 mg PO TID PRN (Reason: Dizziness) 7 Days Qty: 21 0RF cefdinir 300 mg capsule 300 mg PO BID 7 Days Qty: 14 0RF fluticasone propionate [Flonase Allergy Relief] 50 mcg/actuation spray,suspension 2 spray intranasal DAILY Qty: 16 0RF Rx Instructions: administer into each nostril Continued aspirin [Sapphire Low Dose Aspirin] 81 mg Tablet,Delayed Release (Dr/Ec) 81 mg PO DAILY losartan-hydrochlorothiazide 100-25 mg tablet 1 tab PO DAILY omega 3-fwt-esa-fish oil 900-1,400 mg Capsule,Delayed Release(Dr/Ec) 1 cap PO DAILY cholecalciferol (vitamin D3) [Vitamin D3] 125 mcg (5,000 unit) Tablet 125 mcg PO DAILY Discharge Orders: Discharge Order (Routine); Ordered 01/30/25 Ordered By: Brennen Castellanos Referrals: Yvonne Olea MD [Primary Care Provider] - (We have notified your physician's clinic of the need for a follow-up appointment to be scheduled. If you have not heard from them within the next 2 business days, please call them directly. ) Hemanth García MD [Physician] - 4-7 days (Vertigo follow up We have notified your physician's clinic of the need for a follow-up appointment to be scheduled. If you have not heard from them within the next 2 business days, please call them directly. ) Discharge Diet: Advance as tolerated and Usual diet Discharge Activity: Resume usual activity and Increase activity as tolerated Patient Instructions: Prednisone (By mouth), Meclizine (By mouth), Cefdinir (By mouth), Fluticasone (Into the nose), Vertigo (GEN), Opioid Safety Activity Restrictions/Additional Instructions: 1. Take medications as prescribed. 2. Follow-up with ENT. 3. Follow-up with PCP within 1 week. Discharge Attestations Time Spent in Discharge Care*: greater than 30 min Quality Metrics Clinical Quality Measures [ No reported AMI, CVA or VTE this stay] Coding Level of Care Code Acute Code for Chg Fwd Diagnoses Gait instability R26.81 Dizziness R42
[2025-01-30] MEDS: omega-3 fatty acids 1,000 mg Capsule 1000 MG PO (10:05)
[2025-01-30] MEDS: aspirin 81 mg EC Tablet PO (10:05)
[2025-01-30] MEDS: predniSONE 20 mg Tablet 50 MG PO (10:07)
== END 2025-01-30 11:30 | disposition home or self-care (01) | DRG 690 ==
LOC: ER 11:25 → MEDSURG 12:18
PROVIDERS: Admitting Provider Internal Medicine; Emergency Provider Emergency Medicine; PCP Family Medicine; Visit Provider Internal Medicine
DX: N39.0 Urinary tract infection, site not specified (principal); H81.20 Vestibular neuronitis, unspecified ear; R26.89 Other abnormalities of gait and mobility; Z79.82 Long term (current) use of aspirin; I10 Essential (primary) hypertension
CPT/HCPCS: 36415; 36416; 70450; 70551; 71045; 80048; 80053; 81001; 82962; 84484; 85025; 87077; 87086; 87186; 93005; 96374; 96375; 99285; J0696; J1100; J2060; J7512; J8597; J9999